=== PATIENT | female | born 1990 | race Caucasian/White ===

== ENCOUNTER → 2018-12-05 12:24 | Outpatient (CLI) | payer OTHER, SELFPAY ==
[2018-12-05 12:45] LABS: Add Manual Diff / Slide Review NO; Basophils Absolute Auto 0 /uL (0-100); Basophils Percent Auto 0.4 % (0-2); Eosinophils Absolute Auto 100 /uL (0-450); Eosinophils Percent Auto 0.6 % (2-4); Lymphocytes Absolute Auto 2000 /uL (1100-4500); Lymphocytes Percent Auto 17.1 % (25-40); Mean Corpuscular HGB Conc 34.1 % (30-36); Mean Corpuscular Hemoglobin 31.5 PG (26-34); Mean Corpuscular Volume 92.6 fL (80-100); Monocytes Absolute Auto 700 /uL (0-900); Monocytes Percent Auto 5.7 % (3-14); Neutrophils Absolute Auto 9000 /uL (1500-7000); Neutrophils Percent Auto 76.2 % (50-75); Platelet Count 293 X10^3/uL (150-400); Red Blood Cell Count 4.75 X10^6/uL (4.0-5.2); Red Cell Distribution Width 12.5 % (11.6-14.8); White Blood Cell Count 11.8 X10^3/uL (4.5-11.0)
[2018-12-05 13:14] LABS: Appearance Urine UA SL CLOUDY; Bilirubin Urine UA NEGATIVE (NEGATIVE); Color Urine UA YELLOW; Glucose Urine UA NEGATIVE (Negative); Ketones Urine UA NEGATIVE (NEGATIVE); Leukocyte Esterase Urine UA TRACE (NEGATIVE); Nitrite Urine UA NEGATIVE (Negative); Occult Blood Urine UA NEGATIVE (Negative); Protein Urine UA NEGATIVE (Negative); Urobilinogen Urine UA 0.2 E.U./dL (0.2); pH Urine UA 7.5 (4.5-8.0)
[2018-12-05 13:16] LABS: RBC Urine None Seen (0-5/HPF)
[2018-12-05 13:33] LABS: Amorphous Sediment Urine 1+; Bacteria Urine Many (>30); Mucus Urine 1+ (Negative); Squamous Epithelial Cell Urine 1-5 /HPF; WBC Urine 5-10/HPF (0-5/HPF)
[2018-12-05 15:19] LABS: Hepatitis B Surface Antigen NEGATIVE s/c (NEGATIVE); Rubella Antibody IgG 3.6 IU/mL (>15)
[2018-12-05 15:36] LABS: HIV 1 and 2 Antibody NEGATIVE (NEGATIVE); Hep C Virus Ab w/Reflex Quant NEGATIVE s/c (NEGATIVE)
[2018-12-08 08:15] LABS: RPR Screen Nonreactive (Nonreactive)
== END ==
PROVIDERS: Visit Provider Obstetrics & Gynecology
DX: Z34.81 Encounter for supervision of other normal pregnancy, first trimester (principal)
CPT/HCPCS: 36415; 80055; 81003; 81015; 86703; 86787; 86803; 86850; 86900; 86901; 87086

== ENCOUNTER 2018-12-25 18:10 | Emergency (ER) | payer OTHER, SELFPAY ==
[2018-12-25 18:21] VITALS: BP 147/91; PULSE 105; RESP 18; O2SAT 99; BMI 33.9
--- NOTE | 2018-12-25 18:23 | DI.US.S_ITS ---
PROCEDURE: US OB <= 14 WEEKS FETUS INDICATIONS: VAGINAL BLEEDING OUTSIDE/PRIOR DATING DATA: Last menstrual period (LMP): 10/03/18. LMP-based estimated date of delivery (JAMIE): 07/10/19. First dating scan (date and location): 12/05/18. Estimated date of delivery (JAMIE) from first dating scan: 07/19/19. TECHNIQUE: Real-time scanning was performed of the fetus and maternal pelvic organs, with image documentation. Endovaginal scanning was also performed to better visualize the fetus and maternal ovaries. COMPARISON: None. FINDINGS: Embryo: Single intrauterine is seen with fetus a heart rate detected. heart rate is 165 beats per minute. [place]-rump length measures 4.3 cm. Estimated gestational ages 11 weeks one day. Small casie-gestational hematoma is seen measures 1.3 x 0.3 x 4.4 cm in size. Measurement variability in dating: +/- 4 weeks by LMP, +/- 7 days by mean sac diameter (use before 6 weeks gestation if crown-rump length not able to be measured), +/- 5 days by crown-rump length (up to 8 weeks 6 days gestation), +/- 7 days by crown-rump length (up to 13 weeks 6 days gestation). IMPRESSION: Single live intrauterine with fetus seen. heart rate is 165 beats per minute. Estimated gestational age based on current study is 11 week one day. Small casie-gestational hematoma as above. Dictated by: Kosta Torres M.D. on 12/25/2018 at 19:46 Approved by: Kosta Torres M.D. on 12/25/2018 at 19:48
[2018-12-25 19:19] LABS: Add Manual Diff / Slide Review NO; Basophils Absolute Auto 0 /uL (0-100); Basophils Percent Auto 0.3 % (0-2); Eosinophils Absolute Auto 100 /uL (0-450); Eosinophils Percent Auto 0.4 % (2-4); Hematocrit 42.1 % (36-46); Hemoglobin 14.2 g/dL (12.0-16.0); Lymphocytes Absolute Auto 2200 /uL (1100-4500); Lymphocytes Percent Auto 17.6 % (25-40); Mean Corpuscular HGB Conc 33.8 % (30-36); Mean Corpuscular Volume 91.7 fL (80-100); Monocytes Absolute Auto 600 /uL (0-900); Monocytes Percent Auto 4.6 % (3-14); Neutrophils Absolute Auto 9500 /uL (1500-7000); Neutrophils Percent Auto 77.1 % (50-75); Platelet Count 306 X10^3/uL (150-400); Red Blood Cell Count 4.59 X10^6/uL (4.0-5.2); Red Cell Distribution Width 12.5 % (11.6-14.8); White Blood Cell Count 12.3 X10^3/uL (4.5-11.0)
[2018-12-25 19:25] LABS: Alanine Aminotransferase 16 IU/L (9-52); Albumin 4.6 g/dL (3.5-5.0); Albumin Globulin Ratio 1.5 (1.0-2.8); Alkaline Phosphatase 54 U/L (38-126); Aspartate Aminotransferase 16 IU/L (14-36); Bilirubin Total 0.3 mg/dL (0.2-1.3); Blood Urea Nitrogen 9 mg/dL (7-17); Calcium 9.4 mg/dL (8.4-10.2); Carbon Dioxide 23 mmol/L (22-32); Chloride 102 mmol/L (98-107); Estimated Glomerular Filt Rate > 60.0 mL/min (>60); Glucose 91 mg/dL (70-100); HEMOLYSIS < 15 (0-50); Potassium 3.5 mmol/L (3.4-5.1); Sodium 137 mmol/L (137-145); Total Protein 7.6 g/dL (6.3-8.2)
[2018-12-25 20:05] LABS: HCG Quantitative /Beta subunit 36276 mIU/mL
--- NOTE | 2018-12-25 20:15 | ED_ITS ---
HPI - General Chief complaint: OB/Uterine Contractions Stated complaint: 10wks preg with bleeding Time Seen by Provider: 12/25/18 18:11 Source: patient and family Mode of arrival: ambulatory Limitations: no limitations History of Present Illness HPI Narrative: 28-year-old female nonsmoker, otherwise healthy at 10 weeks presents with an episode of vaginal bleeding earlier today in the absence of pain. She states she might be very minimally spotting at this point time but is essentially done bleeding. She is not dizzy nor weak or lightheaded. She denies any injury. She denies dysuria, frequency or urgency. Her has been normal up until this point. MD Complaint: vaginal bleeding Onset (ago): hour(s) Location: pelvis Severity: mild Relieving factors: none Exacerbating factors: none Associated symptoms: vaginal bleeding Vaginal bleeding: heavy Patient : Yes OB History - Current : no complications OB History - Previous Pregnancies: no complications care: followed by OB Related Data : 3 Para: 2 Allergies Allergy/AdvReac Type Severity Reaction Status Date / Time No Known Drug Allergies Allergy Verified 12/25/18 18:21 Review of Systems Constitutional Denies chills, Denies fever(s), Denies lethargy and Denies weakness Eyes Denies change in vision, Denies eye discharge, Denies irritation and Denies loss of vision ENT Ears, Nose, Mouth, and Throat: Denies change in voice, Denies neck pain and Denies sore throat Cardiovascular Denies chest pain, Denies irregular heart rhythm, Denies lightheadedness, Denies palpitations, Denies dyspnea, Denies dyspnea on exertion and Denies orthopnea Respiratory Denies cough, Denies dyspnea, Denies dyspnea on exertion and Denies wheezing Gastrointestinal Gastrointestinal: Denies abdominal pain, Denies change in bowel habits, Denies diarrhea, Denies nausea and Denies vomiting Genitourinary Reports abnormal vaginal bleeding, Denies hematuria, Denies flank pain, Denies urinary incontinence and Denies urinary urgency Musculoskeletal Denies neck pain Integumentary/Breasts Denies pruritus, Denies erythema, Denies rash and Denies wounds Neurologic Denies confusion, Denies loss of vision and Denies weakness Psychiatric Denies anxiety, Denies confusion, Denies depression, Denies homicidal ideation and Denies suicidal ideation Endocrine Denies palpitations Hematologic/Lymphatic Denies easy bruising Allergic/Immunologic Denies wheezing PMFSH - Past Medical History Patient : Yes Exam Narrative Exam Narrative: GEN: AOx3 and in mild distress EYES: Pupils are equal, round, and reactive to light and accommodation. Extraoccular muscles are intact bilaterally. There is no subconjunctival hemorrhage or exudate. CHEST: Lungs are clear to auscultation bilaterally and free of wheezes, rales, or rhonchi. Heart rate is regular rhythm, there are no murmurs, clicks, rubs, or gallops. There is no chest wall tenderness. ABD: Abdomen is soft and nontender. There is no guarding or rebound. Bowel sounds are normal in all 4 quadrants. There is no mass or organomegaly. EXT: Full painless ROM of all extremities with no loss of sensation or strength. SKIN: Warm, pink, and dry. No erythema or rash Initial Vital Signs Initial Vital Signs: Vital Signs Pulse Rate 105 H 12/25/18 18:21 Respiratory Rate 18 12/25/18 18:21 Blood Pressure 147/91 H 12/25/18 18:21 Pulse Oximetry 99 12/25/18 18:21 Course Orders Ordered: ED Orders 12/25/18 18:23 US OB <= 14 weeks fetus Stat 12/25/18 19:02 ABO RH Type Stat Complete Blood Count AUTO DIFF Stat Comprehensive Metabolic Panel Stat HCG Quantitative Stat Consultations Consultation #1: discussion with Dr. Crain whom is happy to allow patient to go home, recommending pelvic rest and follow up next week as planned Vital Signs - 8 hr 12/25/18 18:21 Pulse Rate 105 H Respiratory Rate 18 Blood Pressure 147/91 H Pulse Oximetry 99 MDM - OB/Uterine Contractions Medical Records Attestation: I reviewed the patient's medical records. Lab Data Attestation: I reviewed the patient's lab results. Result diagrams: 12/25/18 19:02 12/25/18 19:02 Lab Results 12/25/18 12/25/18 12/25/18 Range/Units 19:02 19:02 19:02 WBC 12.3 H (4.5-11.0) X10^3/uL RBC 4.59 (4.0-5.2) X10^6/uL Hgb 14.2 (12.0-16.0) g/dL Hct 42.1 (36-46) % MCV 91.7 (80-100) fL MCH 31.0 (26-34) PG MCHC 33.8 (30-36) % RDW 12.5 (11.6-14.8) % Plt Count 306 (150-400) X10^3/uL Neut % (Auto) 77.1 H (50-75) % Lymph % (Auto) 17.6 L (25-40) % Fountain % (Auto) 4.6 (3-14) % Eos % (Auto) 0.4 L (2-4) % Baso % (Auto) 0.3 (0-2) % Neut # (Auto) 9500 H (6528-6462) /uL Lymph # (Auto) 2200 (6846-2884) /uL Fountain # (Auto) 600 (0-900) /uL Eos # (Auto) 100 (0-450) /uL Baso # (Auto) 0 (0-100) /uL Sodium 137 (137-145) mmol/L Potassium 3.5 (3.4-5.1) mmol/L Chloride 102 (98-107) mmol/L Carbon Dioxide 23 (22-32) mmol/L BUN 9 (7-17) mg/dL Creatinine 0.60 (0.52-1.04) mg/dL Estimated GFR > 60.0 (>60) mL/min BUN/Creatinine Ratio 15.0 (6-22) Glucose 91 (70-100) mg/dL Calcium 9.4 (8.4-10.2) mg/dL Total Bilirubin 0.3 (0.2-1.3) mg/dL AST 16 (14-36) IU/L ALT 16 (9-52) IU/L Alkaline Phosphatase 54 (38-126) U/L Total Protein 7.6 (6.3-8.2) g/dL Albumin 4.6 (3.5-5.0) g/dL Globulin 3.0 (1.7-4.1) g/dL Albumin/Globulin Ratio 1.5 (1.0-2.8) HCG, Quant 73923 mIU/mL Blood Type O Positive Imaging Data US - abdomen: Radiologist's impression: [address] [address] Ultrasound Report Signed Patient: Lisa Vences RMR#: [id number] : 1990Acct:[id number] Age/Sex: 28 FDate of Service: 12/25/18 Loc: ED Accession Number: [id number] Procedure: US OB <= 14 weeks fetus Ordering Provider: Charlie Satnos D.O. PROCEDURE: US OB <= 14 WEEKS FETUS INDICATIONS: VAGINAL BLEEDING OUTSIDE/PRIOR DATING DATA: Last menstrual period (LMP): 10/03/18. LMP-based estimated date of delivery (JAMIE): 07/10/19. First dating scan (date and location): 12/05/18. Estimated date of delivery (JAMIE) from first dating scan: 07/19/19. TECHNIQUE: Real-time scanning was performed of the fetus and maternal pelvic organs, with image documentation. Endovaginal scanning was also performed to better visualize the fetus and maternal ovaries. COMPARISON: None. FINDINGS: Embryo: Single intrauterine is seen with fetus a heart rate detected. heart rate is 165 beats per minute. [place]-rump length measures 4.3 cm. Estimated gestational ages 11 weeks one day. Small casie-gestational hematoma is seen measures 1.3 x 0.3 x 4.4 cm in size. Measurement variability in dating: +/- 4 weeks by LMP, +/- 7 days by mean sac diameter (use before 6 weeks gestation if crown-rump length not able to be measured), +/- 5 days by crown-rump length (up to 8 weeks 6 days gestation), +/- 7 days by crown-rump length (up to 13 weeks 6 days gestation). IMPRESSION: Single live intrauterine with fetus seen. heart rate is 165 beats per minute. Estimated gestational age based on current study is 11 week one day. Small casie-gestational hematoma as above. Dictated by: Kosta Torres M.D. on 12/25/2018 at 19:46 Approved by: Kosta Torres M.D. on 12/25/2018 at 19:48 Discharge Plan Departure Patient Disposition: Home Clinical Impression: Subchorionic bleed Qualifiers: Fetus number: single or unspecified fetus Trimester: first trimester Qualified Code(s): O41.8X10 - Other specified disorders of amniotic fluid and membranes, first trimester, not applicable or unspecified Discharge Date/Time: 12/25/18 20:08 Interventions: ED Discharge Assessment Last Done: 12/25/18 20:08 Instructions: DI for -- Discomforts and Remedies Activity Restrictions/Additional Instructions: *You have been diagnosed with [ subchorionic hemorrhage in 1st trimester ] *What to do: * continue to take medications as directed *Follow up with Dr. Crain on Sunday as planned *Return to ER if you should have any new, worsening or concerning symptoms, such as [increased bleeding, through more than 1 pad per hour for multiple hours, significant pain, persistent vomiting, fever over 101 F or other botherso me symptoms *Pelvic rest until cleared by Dr. Crain. No intercourse or anything inserted vaginally Referrals: Kelli Crain MD [Family Provider] -
== END 2018-12-25 20:08 | disposition home or self-care (01) ==
PROVIDERS: Emergency Provider Emergency Medicine; Family Provider Obstetrics & Gynecology; PCP Physician Assistant Medical
DX: O20.9 Hemorrhage in early pregnancy, unspecified (principal); Z3A.10 10 weeks gestation of pregnancy
CPT/HCPCS: 76801; 76817; 80053; 84702; 85025; 86900; 86901; 99282; 99284

== ENCOUNTER → 2019-02-28 14:47 | Outpatient (CLI) | payer OTHER, SELFPAY ==
--- NOTE | 2019-02-28 14:50 | DI.US.S_ITS ---
PROCEDURE: US OB >= 14 WEEKS FETUS INDICATIONS: Anatomy Survey OUTSIDE/PRIOR DATING DATA: Last menstrual period (LMP): 10/03/19. LMP-based estimated date of delivery (JAMIE): 07/10/19. First dating scan (date and location): This study, 02/28/19 Estimated date of delivery (JAMIE) from first dating scan: 07/19/19. TECHNIQUE: Real-time scanning was performed of the fetus, with image documentation and biometric measurements. Endovaginal scanning: Not needed for this study COMPARISON: None. FINDINGS: General: A single living intrauterine gestation is present. Presentation: Vertex Placenta: Placental position is anterior, without previa. Amniotic fluid index: 17.1 cm, normal range is 5-24 cm. heart rate: 150 beats per minute. Maternal cervical canal: Not seen due to deep Vertex presentation of the fetus. biometrics: Biparietal diameter: 5.0 cm, 21 weeks 0 days Head circumference: 18.2 cm, 20 weeks 4 days Abdominal circumference: 15.4 cm, 20 weeks 4 days Femur length: 3.1 cm, 19 weeks 4 days Estimated gestational age from initial scan: not applicable. Composite gestational age from present scan: 20 weeks 3 days Estimated weight and percentile: 339 g, 66th percentile Measurement variability for biometric dating: +/- 7 days from 14 weeks to 15 weeks 6 days gestation, +/- 10 days from 16 weeks to 21 weeks 6 days gestation, +/- 2 weeks from 22 weeks to 27 weeks 6 days gestation, +/- 3 weeks for 28 weeks gestation or later. weight reference: 4500 g or EFW >90/95% is considered macrosomia or large for gestational age. EFW <10% is small for gestational age. EFW 5% or less is considered intra-uterine growth restriction. Anatomic survey: Neuro: Ventricles are non-dilated at less than 10 mm. Cisterna magna is normal at 3-11 mm. Cerebellum is normal in size and morphology. Nuchal skin fold: Normal at less than 6 mm between 14-21 weeks gestational age. Face: Nose and lips, facial profile are normal. Spine: No evidence for spina bifida. Heart: 4-chambered heart is present, with normal ventricular outflow tracts. Diaphragm: Diaphragm is intact. Stomach: Left-sided stomach is present. Kidneys: No hydronephrosis. Normal is less than 5 mm in 2nd trimester, less than 7 mm in 3rd trimester. Cord: 3-vessel cord has orthotopic insertion. Bladder: Normal in size. Extremities: All 4 extremities identified. IMPRESSION: No anomaly seen. Normal amniotic fluid volume. Vertex presentation. Delivery date is projected to be centered on 07/15/19. Dictated by: Sotero Hein M.D. on 02/28/2019 at 16:38 Approved by: Sotero Hein M.D. on 02/28/2019 at 16:41
== END ==
PROVIDERS: Visit Provider Obstetrics & Gynecology
DX: Z34.82 Encounter for supervision of other normal pregnancy, second trimester (principal); Z3A.20 20 weeks gestation of pregnancy
CPT/HCPCS: 76811

== ENCOUNTER → 2019-04-01 10:11 | Outpatient (CLI) | payer OTHER, SELFPAY ==
[2019-04-01 12:52] LABS: Hematocrit 38.4 % (36-46); Hemoglobin 13.6 g/dL (12.0-16.0)
[2019-04-01 17:34] LABS: GTT (PREG) 1 Hour PP 50gm Dose 90 mg/dL (76-139)
== END ==
PROVIDERS: Visit Provider Obstetrics & Gynecology
DX: Z34.82 Encounter for supervision of other normal pregnancy, second trimester (principal); Z3A.24 24 weeks gestation of pregnancy
CPT/HCPCS: 36415; 82950; 85014; 85018

== ENCOUNTER → 2019-06-19 14:12 | Outpatient (CLI) | payer BC, SELFPAY ==
[2019-06-20 12:36] LABS: Strep Grp B PCR NEG for Grp B Strep
== END ==
PROVIDERS: Visit Provider Obstetrics & Gynecology
DX: Z36.85 Encounter for antenatal screening for Streptococcus B (principal); Z3A.35 35 weeks gestation of pregnancy
CPT/HCPCS: 87653

== ENCOUNTER 2019-07-06 07:14 | Inpatient (IN) | payer BC, SELFPAY ==
[2019-07-06 08:57] VITALS: BP 122/83
[2019-07-06 09:43] LABS: Add Manual Diff / Slide Review NO; Basophils Absolute Auto 0 /uL (0-100); Basophils Percent Auto 0.3 % (0-2); Eosinophils Absolute Auto 100 /uL (0-450); Eosinophils Percent Auto 0.4 % (2-4); Hemoglobin 12.6 g/dL (12.0-16.0); Lymphocytes Absolute Auto 1800 /uL (1100-4500); Lymphocytes Percent Auto 13.9 % (25-40); Mean Corpuscular HGB Conc 33.9 % (30-36); Mean Corpuscular Hemoglobin 31.1 PG (26-34); Mean Corpuscular Volume 91.7 fL (80-100); Monocytes Absolute Auto 800 /uL (0-900); Neutrophils Absolute Auto 10300 /uL (1500-7000); Neutrophils Percent Auto 79.4 % (50-75); Platelet Count 222 X10^3/uL (150-400); Red Blood Cell Count 4.03 X10^6/uL (4.0-5.2); Red Cell Distribution Width 13.9 % (11.6-14.8)
--- NOTE | 2019-07-06 11:25 | PM.OBHP.1 ---
OB HPI Date/Time Date of admission: 07/06/19 Date Patient Seen: 07/06/19 Time Patient Seen: 11:25 History of Present Condition Chief complaint: labor and delivery : 3 Para: 2 Estimated Date of Delivery: 07/19/19 Estimated Gestational Age (weeks): 38+1 Narrative: Lisa Vences is a 28 year old female 3 para 2 at 38-,1/7 weeks gestation with spontaneous rupture membranes History of Present care: good care, initiated at week # (8), number of visits (12) and pounds weight gain (21) Dating criteria: LMP confirmed by 1st trimester US Ultrasounds: normal 1st trimester US and normal mid trimester US Obstetrical complications: other (1st trimester subchorionic hemorrhage) Medical complications: none Preadmission Labs Blood type: O (+) positive -: Antibody screen: negative, GBS status: negative, HBsAG: negative, HIV: negative, HSV 1: unknown, HSV 2: unknown and RPR/VDLR: negative -: Chlamydia screen: not detected and Gonorrhea screen: not detected -: Rubella: not immune and Varicella: immune HCT: 38.4 HCAB: negative PAP: Normal Urine: Negative 1 hr GTT: 90 Prior (ies) History: 2 Evaluation Evaluation Baseline heart rate: 140 Variability: Moderate (11-25) monitor accelerations: Present monitor decelerations: Absent Contraction Frequency (minutes): 4 Uterine Contraction Intensity: Mild Category of Tracing: I Cervical dilation (cm): 4 Cervical effacement (%): 100 station: -1 Laboratory results: Laboratory Tests 07/06/19 07/06/19 08:30 08:30 WBC 13.0 H RBC 4.03 Hgb 12.6 Hct 37.0 MCV 91.7 MCH 31.1 MCHC 33.9 RDW 13.9 Plt Count 222 Neut % (Auto) 79.4 H Lymph % (Auto) 13.9 L [place] % (Auto) 6.0 Eos % (Auto) 0.4 L Baso % (Auto) 0.3 Neut # (Auto) 59226 H Lymph # (Auto) 1800 [place] # (Auto) 800 Eos # (Auto) 100 Baso # (Auto) 0 Blood Type O Positive Antibody Screen Negative PFSH Surgical History (Updated 12/05/18 @ 15:01 by Kelli Crain MD) History of ankle surgery (Resolved 2012) History of third molar tooth extraction (Resolved 2010) Status post loop electrosurgical excision procedure (LEEP) of cervix (Resolved 12/31/15) Social History Smoking Status: Never smoker Social History Smoking Status: Never smoker Meds Home Medications and Allergies Home Medications Medication Instructions Recorded Confirmed Type valacyclovir 500 mg tablet 500 mg PO DAILY #30 tab 06/23/19 Rx Allergies Allergy/AdvReac Type Severity Reaction Status Date / Time No Known Drug Allergies Allergy Verified 12/25/18 18:21 Exam Vital Signs (past 8 hours): - 07/06/19 08:57 Blood Pressure 122/83 Narrative Exam Narrative: Generally: Patient is sitting on the ball, no acute distress Fundal height: 41 cm Estimated weight 8 lb Extremities: Trace edema, negative Homans Objective Labs Result Diagrams: 07/06/19 08:30 Labs: Laboratory Results - last 24 hr 07/06/19 07/06/19 08:30 08:30 WBC 13.0 H RBC 4.03 Hgb 12.6 Hct 37.0 MCV 91.7 MCH 31.1 MCHC 33.9 RDW 13.9 Plt Count 222 Neut % (Auto) 79.4 H Lymph % (Auto) 13.9 L [place] % (Auto) 6.0 Eos % (Auto) 0.4 L Baso % (Auto) 0.3 Neut # (Auto) 31944 H Lymph # (Auto) 1800 [place] # (Auto) 800 Eos # (Auto) 100 Baso # (Auto) 0 Blood Type O Positive Antibody Screen Negative Assessment and Plan Assessment and Plan Assessment and Plan narrative: Assessment: 28-year-old 3 para 2 at 38-,1/7 weeks gestation with spontaneous rupture of membranes but not in active labor GBS negative Plan: Epidural as necessary Pitocin augmentation Expected management to spontaneous vaginal delivery Time Spent with Patient Total time spent with greater than 50% in coordination of care (as documented) at patient's floor/unit and/or counseling patient:: 15-24 minutes
[2019-07-06] MEDS: LACTATED RINGERS 1,000 ML 100 ML IV ×2 (11:30→13:38)
[2019-07-06] MEDS: OXYTOCIN PREMIX 30 UNIT/500 ML PLAST..BAG IV (11:39)
--- NOTE | 2019-07-06 15:26 | PM.OBPRVD ---
Labor & Delivery Delivery date: 07/06/19 Cervical ripening method: none Induction method: none Delivery augmentation: pitocin Delivery monitor: external FHT and external uterine Route of delivery: Episiotomy description: None L&D Laceration Description: None Estimated blood loss (mL): 150 Anesthesia type: Epidural Complications: None Narrative: Patient complete and without pushing head delivered over an intact perineum at 3:10 p.m.. No nuchal cord. There was a compound presentation with the left arm up by the face. The remainder of the body delivered without difficulty and was placed on mom's abdomen. The cord was double clamped and cut. Cord bloods were obtained. The placenta delivered intact with a 3 vessel cord at 3:17 p.m.. Fundus was massaged to firm. Pitocin was given in the IV fluids. No lacerations noted. Apgars 8 at 1 minute and 9 at 5 minutes. Epidural analgesia. . Mom and infant stable to recovery. Plan for aftercare: To routine care
[2019-07-06] MEDS: IBUPROFEN 600 MG TABLET PO (19:25)
[2019-07-07] MEDS: IBUPROFEN 600 MG TABLET PO ×2 (01:30→08:24)
[2019-07-07] MEDS: DOCUSATE 250 MG CAPSULE PO (08:30)
[2019-07-07] MEDS: PRENATAL VIT,CALC/IRON/FOLIC 1 TABLET 1 TAB PO (08:30)
--- NOTE | 2019-07-07 10:51 | P.DS_ITS ---
Discharge Providers Provider Date of admission: 07/06/19 07:14 Discharge Date: 07/07/19 Consults: 07/06/19 16:17 Consult to Radiographer Routine Comment: Discharge provider: Kelli Crain MD Summary Hospital Course Date Patient Seen: 07/07/19 Time Patient Seen: 10:51 Procedures: Spontaneous vaginal delivery Epidural analgesia Hospital Course: Patient is a 28-year-old 3 para 3 who presented yesterday morning with spontaneous rupture of membranes at 6:00 a.m.. Pitocin augmentation was started at 11:00 a.m.. She progressed to complete dilation and without pushing had a spontaneous vaginal delivery at 3:10 p.m. without complication. No lacerations. course unremarkable Peripartum Data Delivery Method: Natural Vaginal Laceration description: None Episiotomy description: None Procedures: Spontaneous vaginal delivery Epidural analgesia complications: none Status at Discharge Cognitive/behavioral status at discharge: oriented Functional status at discharge: independent ambulation Overall status at discharge: patient is progressing back to baseline Time Spent with Patient Time attestation: Total time spent providing and/or coordinating discharge services: Time spent: Less than 30 minutes Objective Labs Result Diagrams: 07/06/19 08:30 Exam Vital Signs (past 8 hours): Generally: Patient walking around in room, no acute distress Fundus: Firm at U -1 Extremities: Negative Homans, trace edema Discharge Plan Discharge Plan Patient Disposition: Home Discharge comment: Call with fever, chills, or bleeding vaginally more than a pad an hour Ibuprofen 600 mg every 6 hours as needed Discharge Med Rec/Prescriptions Prescriptions: No Action No Known Home Medications RF: 0 Follow up/Referrals: Kelli Crain MD [Physician] - 6 Weeks Provider Discharge Instructions Diet: Regular Activity: No intercourse Skin/Wound/Dressing Care Report to your healthcare provider any signs of infection, such as:: chills, fever, increased pain and unusual drainage Visit Report/Discharge Packet Instructions: DI for Labor and Delivery, Vaginal Discharge Data Attending Provider: Kelli Crain Admit Date/Time: 07/06/19 07:14
[2019-07-07 11:34] VITALS: BP 123/83; PULSE 91; RESP 16; TEMP 36.6
[2019-07-07] MEDS: MEASLES,MUMPS,RUBELLA VACC/PF 0.5 ML VIAL SUBCUT (14:32)
== END 2019-07-07 14:50 | disposition home or self-care (01) | DRG 807 ==
PROVIDERS: Admitting Provider Obstetrics & Gynecology; Visit Provider Obstetrics & Gynecology
DX: O42.02 Full-term premature rupture of membranes, onset of labor within 24 hours of rupture (principal); Z37.0 Single live birth; O32.6XX0 Maternal care for compound presentation, not applicable or unspecified; Z3A.38 38 weeks gestation of pregnancy
CPT/HCPCS: 01967; 59050; 59400; 85025; 86850; 86900; 86901; G0378; G0379; J2590

== ENCOUNTER → 2020-01-16 09:44 | Outpatient (CLI) | payer BC, SELFPAY ==
[2020-01-16 10:41] LABS: Influenza A - CEPHEID Flu A NEGATIVE (NEGATIVE); Influenza B - CEPHEID Flu B NEGATIVE (NEGATIVE)
[2020-01-21 13:53] LABS: COVID19 Sendout Not Detected (Not Detected)
== END ==
PROVIDERS: Visit Provider Nurse Practitioner
DX: R68.89 Other general symptoms and signs (principal); J02.9 Acute pharyngitis, unspecified
CPT/HCPCS: 87070; 87502; 87635

== ENCOUNTER → 2021-06-20 11:26 | Outpatient (CLI) | payer BC, SELFPAY ==
[2021-06-20 14:00] LABS: COVID19 -Nasal RAPID Negative (Negative)
== END ==
PROVIDERS: Visit Provider Physician Assistant
DX: J02.9 Acute pharyngitis, unspecified (principal); R53.83 Other fatigue; Z20.822 Contact with and (suspected) exposure to COVID-19
CPT/HCPCS: 87635

== ENCOUNTER → 2023-06-01 09:58 | Outpatient (CLI) | payer BC, SELFPAY ==
[2023-06-01 12:31] LABS: Rubella Antibody IgG 9.4 IU/mL (>15)
[2023-06-02 07:03] LABS: Hepatitis B Surf AB Quant 6.2 mIU/mL (Immunity>9.9)
[2023-06-02 08:09] LABS: Varicella IgG Antibody 1570 index (Immune >165)
[2023-06-02 10:08] LABS: Mumps Virus IgG Antibody 16.5 AU/mL (Immune >10.9)
== END ==
PROVIDERS: PCP Family Medicine; Referring Provider Family Medicine; Visit Provider Family Medicine
DX: Z28.39 Other underimmunization status (principal); Z02.1 Encounter for pre-employment examination; Z01.84 Encounter for antibody response examination
CPT/HCPCS: 36415; 86706; 86735; 86762; 86765; 86787

== ENCOUNTER → 2024-08-13 13:56 | Outpatient (CLI) | payer BC, SELFPAY | PROVIDERS: PCP Family Medicine; Referring Provider Internal Medicine; Visit Provider Internal Medicine | DX: Z23 Encounter for immunization (principal) | CPT/HCPCS: 90471; 90656 ==

== ENCOUNTER → 2024-12-29 09:34 | Outpatient (CLI) | payer BC, SELFPAY ==
[2024-12-29 10:29] LABS: COVID-19 CEPHEID 4-PLEX PCR Negative (Negative); Influenza A - CEPHEID Flu A NEGATIVE (NEGATIVE); Influenza B - CEPHEID Flu B NEGATIVE (NEGATIVE); Respiratory Syncytial Virus Negative (Negative)
== END ==
PROVIDERS: PCP Family Medicine; Visit Provider Nurse Practitioner Family
DX: J02.9 Acute pharyngitis, unspecified (principal); R05.1 Acute cough
CPT/HCPCS: 0241U; 87070